=== PATIENT | female | born 1970 | race Caucasian/White ===

== ENCOUNTER → 2018-05-02 14:33 | Outpatient (CLI) | payer BC, SELFPAY ==
--- NOTE | 2018-05-02 14:55 | RAD_ITS ---
STUDY: X-RAY - ABDOMEN/PELVIS REASON FOR EXAM: Female, 47 years old. Flank pain TECHNIQUE: Two AP supine views of the abdomen and pelvis. COMPARISON: None. FINDINGS: There is no bowel obstruction. There is a large amount of stool in the colon, consistent with constipation. There are no definite urinary calculi identified. The visualized osseous structures are within normal limits. RAD/Abdomen Single View IMPRESSION: No bowel obstruction. Constipation. No definite urinary calculi identified. Electronically Signed: Gabino Abrams, at 23:19 EDT Tel , Service support ,
== END ==
PROVIDERS: Family Provider Family Medicine; PCP Family Medicine; Visit Provider Nurse Practitioner Adult Health
DX: R31.29 Other microscopic hematuria (principal); R10.9 Unspecified abdominal pain; Z87.442 Personal history of urinary calculi
CPT/HCPCS: 74018; 87086

== ENCOUNTER → 2018-05-12 06:46 | Outpatient (CLI) | payer BC, SELFPAY | PROVIDERS: Family Provider Family Medicine; PCP Family Medicine; Visit Provider Nurse Practitioner Adult Health | DX: R31.29 Other microscopic hematuria (principal); Z87.442 Personal history of urinary calculi | CPT/HCPCS: 74178; Q9967 ==

== ENCOUNTER → 2018-05-16 16:13 | Outpatient (CLI) | payer BC, SELFPAY | PROVIDERS: Family Provider Family Medicine; PCP Family Medicine; Visit Provider Nurse Practitioner Adult Health | DX: R31.9 Hematuria, unspecified (principal) | CPT/HCPCS: 87086; 87088 ==

== ENCOUNTER → 2018-07-04 16:39 | Outpatient (CLI) | payer BC, SELFPAY ==
[2018-07-04 16:41] LABS: Cytology, Body Fluid / CSF SEE PATHOLOGY REPORT
--- NOTE | 2018-07-05 | CYSPIN_PTH ---
PATIENT: ANSELMO IRWIN LOC: [facility] U#:[id number] AGE/SX: 54/F ROOM: RE07/04/[address]: Dr. Christo Bradley MD : 1970 BED: DIS: SPEC #: [id number] RECD: 07/05/18 13:06 STATUS: EMEKA JENSEN #: [id number] ELVIRA: 07/05/18 00:[address]: Christo Bradley DEPT: CYTOLOGY RECD BY: Fadi Rey Tissues: Urine Procedures: Pap Stain (control) Special Stain Group II Cytospin Fluid HEADER OPERATION: Not noted PRE-OP DIAGNOSIS: Microhematuria TISSUE SUBMITTED: Urine for cytology DIAGNOSIS CYTOLOGY Urine for cytology (cytospin): Negative for malignant cells. See cytology study and comment. SJ:aylin 07/06/18 COMMENT Clinical correlation and appropriate follow up are necessary. CYTOLOGY STUDY Slides are reviewed. The specimen predominantly consists of benign squamous cells, a few red blood cells and rare neutrophils. CYTOLOGY GROSS Received is 10 ml of yellow cloudy fluid labeled with the patient's name and and designated per the requisition as urine. Submitted for cytology preparation including cell block. / 07/05/18 TC:5 CPT: 29299
== END ==
PROVIDERS: Referring Provider Urology; Visit Provider Urology
DX: R31.29 Other microscopic hematuria (principal)
CPT/HCPCS: 88108; 88313

== ENCOUNTER → 2019-01-16 | Outpatient (CLI) | payer BC, SELFPAY ==
--- NOTE | 2019-01-16 | CYSPIN_PTH ---
PATIENT: ANSELMO IRWIN LOC: [facility] U#:[id number] AGE/SX: 48/F ROOM: RE01/16/[address]: VALERIY Alvarez : 1970 BED: DIS: 01/16/2019 SPEC #: [id number] RECD: 01/16/19 16:30 STATUS: EMEKA JENSEN #: [id number] ELVIRA: 01/16/19 00:[address]: Danette Encarnacion NP DEPT: CYTOLOGY RECD BY: Myles Horne ENTERED: 01/17/19 12:49 SP TYPE: CYSPIN FL OTHR DR: No Primary Care Phys Tissues: Urine Procedures: Pap Stain (control) Special Stain Group II Cytospin Fluid HEADER OPERATION: Not noted PRE-OP DIAGNOSIS: Microhematuria TISSUE SUBMITTED: Urine for cytology DIAGNOSIS CYTOLOGY Urine for cytology (cytospin): Negative for malignant cells. See cytology study and comment. SJ:aylin 01/18/19 COMMENT Please make reference to previous specimen ([id number]) urine for cytology with diagnosis of negative for malignant cells. CYTOLOGY STUDY Slides are reviewed. The specimen predominantly consists of benign squamous cells and a few red blood cells. CYTOLOGY GROSS Received is 40 ml of clear yellow fluid labeled with the patient's name and and designated per the requisition as urine. Submitted for cytology preparation. 01/17/19 TC:5 CPT: 55312
[2019-01-16 18:10] LABS: Bacteria 0 SEEN /hpf (None Seen); Cytology, Body Fluid / CSF SEE PATHOLOGY REPORT; Red Blood Cells-Urine 0 SEEN /hpf (0-5); White Blood Cells 0 SEEN /hpf (0-5)
[2019-01-16 18:35] LABS: Color, Urine Yellow (Yellow); Glucose, Dipstick Normal (Normal); Ketone-Dipstick Negative (Negative); Leukocyte Esterase-Dipstick Negative /ul (Negative); Nitrite-Dipstick Negative (Negative); Occult Blood-Urine 150 /ul (Negative); Protein-Dipstick Negative (Negative); Urine Bilirubin Dipstick Negative (Negative); Urine Clarity Clear (Clear); Urine Urobilinogen Normal (Normal)
[2019-01-16 18:43] LABS: Mucous, Urine 2+ /hpf (<or=2+); Squamous Epithelial Cells - UA 0-5 SEEN /hpf (5-10)
== END | disposition home or self-care (01) ==
PROVIDERS: Referring Provider Nurse Practitioner Adult Health; Visit Provider Nurse Practitioner Adult Health
DX: R31.29 Other microscopic hematuria (principal)
CPT/HCPCS: 81001; 88108; 88313

== ENCOUNTER → 2019-04-12 | Outpatient (CLI) | payer BC, SELFPAY ==
[2019-04-12 13:03] LABS: ALB/GLOB Ratio 0.9 RATIO (0.9-2.4); AST(SGOT) 12 U/L (15-37); Alanine Aminotransfer ALT/SGPT 14 U/L (13-56); Albumin, Serum 3.4 g/dL (3.2-5.0); Alkaline Phosphatase 49 U/L (45-117); Anion Gap 6 (5-15); BUN 9 mg/dL (7-18); BUN/Creat Ratio 13.6 RATIO (10-20); Calcium,Total 8.5 mg/dL (8.5-10.1); Chloride 103 mmol/L (98-107); Cholesterol 238 mg/dL (200); Creatinine, Serum 0.66 mg/dL (0.55-1.02); EST Glomerular Filtration Rate 102 mL/min (>60); Est Glom Filt Rate - Afr Amer 123 mL/min (>60); Globulin 3.6 g/dL (2.2-4.2); Glucose 84 mg/dL (74-106); High Density Lipoprotein 57 mg/dL; Potassium 3.6 mmol/L (3.5-5.1); Sodium Level 134 mmol/L (136-145); Triglycerides 232 mg/dL; Very Low Density Lipoprotein 46 mg/dL (5-40)
[2019-04-14 13:24] LABS: Anti-Nuclear Antibody Test Negative (.)
== END | disposition home or self-care (01) ==
LOC: POLAB3 12:13
PROVIDERS: Visit Provider Internal Medicine Nephrology
DX: R31.21 Asymptomatic microscopic hematuria (principal); R16.0 Hepatomegaly, not elsewhere classified
CPT/HCPCS: 36415; 80053; 80061; 86038

== ENCOUNTER → 2019-04-26 | Outpatient (CLI) | payer BC, SELFPAY ==
[2019-04-26 10:45] LABS: Bacteria 0 SEEN /hpf (None Seen); Mucous, Urine 0 SEEN /hpf (<or=2+)
[2019-04-26 13:22] LABS: Color, Urine Yellow (Yellow); Glucose, Dipstick Normal (Normal); Ketone-Dipstick Negative (Negative); Leukocyte Esterase-Dipstick Negative /ul (Negative); Nitrite-Dipstick Negative (Negative); Occult Blood-Urine 25 /ul (Negative); Protein-Dipstick Negative (Negative); Urine Bilirubin Dipstick Negative (Negative); Urine Clarity Clear (Clear); Urine Urobilinogen Normal (Normal)
[2019-04-26 13:36] LABS: Red Blood Cells-Urine 0-5 SEEN /hpf (0-5); Squamous Epithelial Cells - UA 0-5 SEEN /hpf (5-10); White Blood Cells 0-5 SEEN /hpf (0-5)
== END | disposition home or self-care (01) ==
LOC: LAB 10:43
PROVIDERS: Family Provider Family Medicine; PCP Family Medicine; Referring Provider Internal Medicine Nephrology; Visit Provider Internal Medicine Nephrology
DX: R31.21 Asymptomatic microscopic hematuria (principal)
CPT/HCPCS: 81001

== ENCOUNTER → 2019-08-30 07:58 | Outpatient (CLI) | payer BC, SELFPAY ==
--- NOTE | 2019-08-30 09:33 | NEURO ---
NCS and/or EMG Patient Report HPI: Patient is a 48-year-old female who is right-handed and complains of numbness in the right first thumb and index finger since December. Patient mentioned that sometimes it is hard to twist things from right hand. Patient works in job where she uses her right hand a lot. Patient does not have any symptoms on the left side. No history of arm or neck surgeries. No history of arm or neck injuries. Physical Exam: Mild decrease in sensation to light touch in the right thumb and index finger. No significant weakness or atrophy of the right thenar or hypothenar muscles noted. Findings: Normal EMG and nerve conduction studies of the right upper extremity. Impression: No electrodiagnostic evidence of right median mononeuropathy or right ulnar neuropathy in the right upper extremity. Recommendation: 1. Patient recommended to wear the right hand splint as much as possible and avoid sleeping on the right hand and repetitive use of right hand. 2. Patient may need a cortisone injection in the right carpal tunnel if symptoms continues.
== END ==
PROVIDERS: Family Provider Family Medicine; PCP Family Medicine
DX: R20.0 Anesthesia of skin (principal); M54.2 Cervicalgia
CPT/HCPCS: 95886; 95909